=== PATIENT | male | born 1955 | race Caucasian/White ===

== ENCOUNTER 2022-11-09 16:35 | Outpatient (REF) | payer MEDICARE, SELFPAY ==
[2022-11-09 21:32] LABS: HCT 45.1 % (40.0-50.0); HGB 15.2 g/dL (13.5-17.5); MCH 30.6 pg (27.0-33.0); MCHC 33.7 % (32.0-36.0); MCV 91 fL (80-95); MPV 10.7 fL (8.0-11.0); Platelet Count 203 10^3/uL (130-400); RBC 4.97 10^6/uL (4.36-5.78); RDW 13.2 % (11.8-14.1); RDW-SD 44.6 fL; WBC 6.19 10^3/uL (4.4-10.8)
[2022-11-09 21:51] LABS: ALT 23 U/L (16-63); AST 24 U/L (15-37); Albumin 4.2 g/dL (3.4-5.0); Alkaline Phosphatase 63 U/L (46-116); Anion Gap 9.6 mmol/L (3-11); BUN 17 mg/dL (7-18); Bilirubin, Total 0.6 mg/dL (0.2-1.0); CO2 24.4 mmol/L (21.0-32.0); CREATININE 0.8 mg/dL (0.70-1.30); Calcium 9.2 mg/dL (8.5-10.1); Calculated LDL 157 mg/dL (<100); Chloride 104 mmol/L (98-107); Cholesterol 232 mg/dL (<200); Glucose 92 mg/dL (74-106); HDL Cholesterol 63 mg/dL (40-60); Potassium 4.1 mmol/L (3.5-5.1); Sodium 138 mmol/L (136-145); TSH 0.98 uIU/mL (0.36-3.74); Total Protein 7.6 g/dL (6.4-8.2); Triglyceride 61 mg/dL (<150)
[2022-11-09 22:01] LABS: Hemoglobin A1C 5.3 % (<5.7)
[2022-11-10 19:35] LABS: PSA, Screening 0.2 ng/mL (<=4.5)
== END 2022-11-09 16:36 | disposition home or self-care (01) ==
LOC: NCHCN 16:35
PROVIDERS: PCP Family Medicine; Visit Provider Family Medicine
DX: R53.83 Other fatigue (principal); R79.89 Other specified abnormal findings of blood chemistry; Z12.5 Encounter for screening for malignant neoplasm of prostate
CPT/HCPCS: 80053; 80061; 84153; 85027; 83036; 84443

== ENCOUNTER 2023-06-01 13:59 | Outpatient (REF) | payer MEDICARE, SELFPAY ==
[2023-06-01 14:47] LABS: Hemoglobin A1C 5.2 % (<5.7)
[2023-06-01 14:56] LABS: ALT 41 U/L (16-63); AST 24 U/L (15-37); Albumin 3.9 g/dL (3.4-5.0); Alkaline Phosphatase 84 U/L (46-116); Anion Gap 7.3 mmol/L (3-11); BUN 22 mg/dL (7-18); Bilirubin, Total 0.6 mg/dL (0.2-1.0); CO2 29.7 mmol/L (21.0-32.0); CREATININE 0.8 mg/dL (0.70-1.30); Calcium 9.4 mg/dL (8.5-10.1); Calculated LDL 131 mg/dL (<100); Chloride 104 mmol/L (98-107); Cholesterol 212 mg/dL (<200); Glucose 97 mg/dL (74-106); HDL Cholesterol 75 mg/dL (40-60); Potassium 4.5 mmol/L (3.5-5.1); Sodium 141 mmol/L (136-145); Total Protein 7.3 g/dL (6.4-8.2); Triglyceride 32 mg/dL (<150)
== END 2023-06-01 14:00 | disposition home or self-care (01) ==
LOC: NCHCN 13:59
PROVIDERS: PCP Family Medicine; Visit Provider Family Medicine
DX: E78.70 Disorder of bile acid and cholesterol metabolism, unspecified (principal); R73.03 Prediabetes
CPT/HCPCS: 80053; 80061; 83036

== ENCOUNTER 2023-12-16 12:09 | Outpatient (REF) | payer MEDICARE, SELFPAY ==
[2023-12-16 14:57] LABS: Calculated LDL 132 mg/dL (<100); Cholesterol 210 mg/dL (<200); HDL Cholesterol 68 mg/dL (40-60); Hemoglobin A1C 5.4 % (<5.7); Triglyceride 54 mg/dL (<150)
== END 2023-12-16 12:10 | disposition home or self-care (01) ==
LOC: NCHCN 12:09
PROVIDERS: PCP Family Medicine; Visit Provider Family Medicine
DX: E78.5 Hyperlipidemia, unspecified (principal); Z86.010 Personal history of colon polyps
CPT/HCPCS: 80061; 83036

== ENCOUNTER 2024-07-21 10:41 | Outpatient (REF) | payer MEDICARE, SELFPAY ==
[2024-07-21 14:55] LABS: Calculated LDL 152 mg/dL (<100); Cholesterol 226 mg/dL (<200); HDL Cholesterol 53 mg/dL (>or=40); Triglyceride 106 mg/dL (<150)
== END 2024-07-21 10:42 | disposition home or self-care (01) ==
LOC: NCHCN 10:41
PROVIDERS: PCP Family Medicine; Visit Provider Family Medicine
DX: E78.5 Hyperlipidemia, unspecified (principal)
CPT/HCPCS: 80061

== ENCOUNTER 2025-01-25 20:37 | Outpatient (REF) | payer MEDICARE, SELFPAY ==
[2025-01-25 21:13] LABS: Abs Immature Grans 0.02 10^3/uL (0.0-0.06); HCT 47.4 % (40.0-50.0); HGB 15.8 g/dL (13.5-17.5); Immature Grans % 0.4 %; MCH 30.6 pg (27.0-33.0); MCHC 33.3 % (32.0-36.0); MCV 92 fL (80-95); MPV 10.6 fL (8.0-11.0); Platelet Count 218 10^3/uL (130-400); RBC 5.17 10^6/uL (4.36-5.78); RDW 13.3 % (11.8-14.1); RDW-SD 45.3 fL; WBC 5.01 10^3/uL (4.4-10.8)
[2025-01-26 17:52] LABS: PSA, Diagnostic 0.5 ng/mL (<=6.5)
== END 2025-01-25 20:38 | disposition home or self-care (01) ==
LOC: NCHCN 20:37
PROVIDERS: PCP Family Medicine; Visit Provider Family Medicine
DX: R39.9 Unspecified symptoms and signs involving the genitourinary system (principal)
CPT/HCPCS: 84153; 85025

== ENCOUNTER 2025-03-28 14:51 | Outpatient (REF) | payer MEDICARE, SELFPAY ==
[2025-03-28 21:39] LABS: Abs Immature Grans 0.01 10^3/uL (0.0-0.06); HCT 45.3 % (40.0-50.0); HGB 15.0 g/dL (13.5-17.5); Immature Grans % 0.2 %; MCH 29.8 pg (27.0-33.0); MCHC 33.1 % (32.0-36.0); MCV 90 fL (80-95); MPV 10.6 fL (8.0-11.0); Platelet Count 207 10^3/uL (130-400); RBC 5.03 10^6/uL (4.36-5.78); RDW 13.0 % (11.8-14.1); RDW-SD 43.1 fL; WBC 5.96 10^3/uL (4.4-10.8)
[2025-03-28 21:54] LABS: Cholesterol 207 mg/dL (<200); HDL Cholesterol 68 mg/dL (>or=40)
[2025-03-30 11:42] LABS: Lyme Ab w Rflx to Lyme Confirm Negative (Negative)
[2025-04-01 13:12] LABS: B. miyamotoi PCR Negative (Negative); Babesia divergens/MO-1 Negative (Negative); Ehrlichia muris eauclairensis Negative (Negative)
== END 2025-03-28 14:52 | disposition home or self-care (01) ==
LOC: NCHCN 14:51
PROVIDERS: PCP Family Medicine; Visit Provider Family Medicine
DX: R59.1 Generalized enlarged lymph nodes (principal)
CPT/HCPCS: 80061; 87798; 85025; 86618